=== PATIENT | female | born 1935 | race African-American/Black ===

== ENCOUNTER → 2018-01-07 15:57 | Outpatient (CLI) | payer MEDICARE ==
[~2018-01-07 15:57] MED LIST: ALENDRONATE SOD70 MG PO; GLUCOPHAGE500 MG PO; LASIX20 MG PO; OMEPRAZOLE20 M1 PO; PRINIVIL10 MG PO
[2018-02-05 08:06] VITALS: BMI 27.0
== END | disposition home or self-care (01) ==
LOC: D.US 15:57
DX: R60.0 Localized edema (principal); M79.605 Pain in left leg; M79.604 Pain in right leg

== ENCOUNTER 2018-02-05 07:07 | Outpatient (CLI) | payer MEDICARE ==
[~2018-02-05] VITALS: Ht 162.6 cm; Wt 71.4 kg
--- NOTE | ~2018-02-05 | HEMODYNAMI ---
PATIENT:LESLIE ABBOTT V MEDICAL RECORD: [id number] : 33 LOCATION:D.CAT ADMISSION DATE: 02/05/18 Generatedon:02/05/20189:43 Patient name: LESLIE ABBOTT Patient #: [id number] SSN: : 1935 Date of study: 02/05/2018 Page: Of Hemodynamic Procedure Report Patient Data Patient Demographics Procedure consent was obtained First Name: LESLIE Gender: Female Last Name: SCAR : 1935 [facility] Initial: V Age: 82 year(s) Patient #: [id number] Race: Black Additional ID: [id number] Contact details Address: [address] [place] [address] [address] [place] State: [place] City: [place] Zip code: [address] Past Medical History Allergies: No known allergies Admission Admission Data Admission Date: 02/05/2018 Admission Time: 7:07 Admit Source: Other Lab Results Lab Result Date: 02/05/2018 Lab Result Time: 7:50 Biochemistry Name Units Result Min Max BUN mg/dl 39 --(----)-* 7 18 Creatinine mg/dl 1.6 --(----)-* 0.6 1.3 CBC Name Units Result Min Max Hematocrit % 32.6 *-(----)-- 42 54 Hemoglobin g/dl 9.9 *-(----)-- 13.5 17.5 Procedure Procedure Types Cath Procedure Peripheral Cath Diagnostic Procedure Cath Peripheral Lkjrw-Luuwwyv-Ipj-Off Procedure Description Procedure Date Procedure Date: 02/05/2018 Procedure Start Time: 9:27 Procedure End Time: 9:42 Procedure Staff Name Function John Toro MD Performing Physician Mohinder Hernandez RT Monitor Lowell Yañez RN Nurse Geeta Galo RT Scrub Procedure Data Cath Procedure Fluoroscopy Diagnostic fluoroscopy Total fluoroscopy Time: 0.9 time: 0.9 min min Diagnostic fluoroscopy Total fluoroscopy dose: 126 dose: 126 mGy mGy Contrast Material Contrast Material Type Amount (ml) Isovue 300 74 Entry Location Entry Primary Successful Side Size Upsize Upsize Entry Closure Succes sful Closure Location (Fr) 1 (Fr) 2 (Fr) Remarks Device Remarks Femoral Right 5 Fr Exoseal artery Estimated blood loss: 5 ml Diagnostic catheters Device Type Used For End Catheter Placement DIAGNOSTIC UF 5Fr Procedure catheter ([id number]) Procedure Complications No complications Procedure Medications Medication Administration Route Dosage Oxygen NC 2 l/min Lidocaine 2% added to field 20 Heparin Flush Bag added to field 2 bags (1000units/500ml NS) 0.9% NaCl I.V. 100 ml/hr Ativan 0.5 mg Fentanyl I.V. 25 mcg Fentanyl I.V. 25 mcg Ativan 0.5 mg Hemodynamics Rest HGB: 9.9 (g/dl) Heart Rate: 78 (bpm) Snapshots Pre Cath Intra NCS Post Cath Vital Signs Time Heart Resp SPO2 etCO2 NIBP (mmHg) Rhythm Pain Sedation Rate (ipm) (%) (mmHg) Status Level (bpm) 9:15:19 81 27 100 16.6 166/81(130) NSR 0 (11) 10(A) , No pain 9:19:41 76 21 100 31.8 160/86(128) NSR 0 (11) 10(A) , No pain 9:24:04 75 21 100 24.9 163/82(126) NSR 0 (11) 10(A) , No pain 9:29:11 79 25 100 24.2 153/89(119) NSR 0 (11) 10(A) , No pain 9:33:33 83 23 100 24.2 153/83(122) NSR 0 (11) 10(A) , No pain 9:37:51 87 19 100 18.9 144/90(95) NSR 0 (11) 10(A) , No pain 9:42:09 84 18 99 15.9 144/89(140) NSR 0 (11) 10(A) , No pain Medications Time Medication Route Dose Verified Delivered Reason Notes Effec tiveness by by 9:20:48 Oxygen NC 2 John Buffie used for l/min Cortez Yañez entry level project coordinator 9:20:56 Lidocaine 2% added 20ml John John for local to vial Cortez Toro MD anesthetic field 9:21:02 Heparin Flush added 2 John John used for Bag to bags Cortez Toro MD procedure (1000units/500ml field NS) 9:21:13 0.9% NaCl I.V. 100 John Buffie Per ml/hr Cortez Yañez RN physician 9:24:03 Ativan IV 0.5 John Buffie Per mg Cortez Yañez RN physician 9:24:12 Fentanyl I.V. 25 John Buffie for mcg Cortez Yañez RN sedation 9:30:40 Fentanyl I.V. 25 John Buffie for mcg Cortez Yañez RN sedation 9:32:08 Ativan IV 0.5 John Buffie Per mg Cortez Yañez RN physician Procedure Log Time Note 8:35:44 Informed consent obtained and on chart 8:35:48 Admit Source: Other 8:36:02 Diagnostic Cath status Elective 8:36:03 Time tracking: Regular hours (M-F 7:00 - 5:00) 8:36:06 Plan of Care:Hemodynamics will remain stable., Cardiac rhythm will remain stable., Comfort level will be maintained., Respiratory function will remain adequate., Patient/ family verbilizes understanding of procedure., Procedure tolerated without complication., Recovers from procedure without complications.. 8:36:30 H&P Date Dictated: 01/21/2018 Within 30 days and on chart., H&P Addendum completed by physician on day of procedure. (MUST COMPLETE FOR ALL OUTPATIENTS). 8:39:02 Patient NPO since Midnight. 8:39:07 Patient allergic to No known allergies 8:41:52 Lab Result : BUN 39 mg/dl 8:41:52 Lab Result : Hemoglobin 9.9 g/dl 8:41:52 Lab Result : Creatinine 1.6 mg/dl 8:41:52 Lab Result : Hematocrit 32.6 % 8:41:56 Lab results completed and on chart. 8:45:42 Lowell Yañez RN sent for patient. Start room use. 9:02:55 Patient received from Pre/Post Procedure Room to CCL 2 Alert and oriented. Tansferred to table in Supine position. 9:02:56 Warm blankets applied, and genesis hugger turned on for patient comfort. 9:02:56 Correct patient and procedure confirmed by team. 9:02:57 ECG and BP/O2 sat monitors applied to patient. 9:02:58 Pre-procedure instructions explained to patient. 9:02:58 Pre-op teaching completed and patient verbalized understanding. 9:03:00 Family in waiting room. 9:03:02 Is the patient allergic to Iodine/contrast media? No. 9:14:00 Vital chart was started 9:14:19 Rhythm: sinus rhythm 9:20:48 Oxygen 2 l/min NC was administered by Lowell Yañez RN; used for procedure; 9:20:56 Lidocaine 2% 20ml vial added to field was administered by John Toro MD; for local anesthetic; 9:21:02 Heparin Flush Bag (1000units/500ml NS) 2 bags added to field was administered by John Toro MD; used for procedure; 9:21:13 0.9% NaCl 100 ml/hr I.V. was administered by Lowell Yañez RN; Per physician; 9:21:22 Is patient on blood thinner?No 9:21:23 Patient diabetic? Yes. 9:21:24 If diabetic: On Metformin? Yes 9:21:29 Previous problem with sedation/anesthesia? No ? 9:21:30 Snore? Yes 9:21:31 Sleep apnea? No 9:21:32 Deviated septum? No 9:21:33 Opens mouth fully? Yes 9:21:33 Sticks out tongue? Yes 9:21:35 Airway obstruction? No ? 9:21:40 Dentures? Yes partial in tight 9:21:51 Pre procedure: right dorsailis pedis pulse Doppler 9:21:54 Pre procedure: left dorsailis pedis pulse Doppler 9:22:08 Patient pain scale 0/10 ?. 9:22:42 IV patent on arrival in left antecubital with 0.9% NaCl at [facility]. 9:22:47 Bilateral groins area was prepped with chlora-prep and draped in sterile fashion 9:22:47 Alarms reviewed by R. N. 9:22:48 Sharps counted by scrub and verified by R.N. 9:22:51 ACIST Syringe (36619) opened to sterile field. 9:22:51 Bag Decanter (2002S) opened to sterile field. 9:22:52 Medline Cath Pack ([id number]) opened to sterile field. 9:22:53 DIAGNOSTIC WIRE .035 260cm J wire (097302) opened to sterile field. 9:22:54 ACIST Hand Control (55357) opened to sterile field. 9::54 ACIST Manifold (90769) opened to sterile field. 9::55 Tegaderm 4 x 4 (1626W) opened to sterile field. 9::57 PERCUTANEOUS ENTRY 19GA needle opened to sterile field. 9:23:13 SHEATH Prelude 5Fr 0.035 ([id number]) opened to sterile field. 9:: Baseline sample Acquired. :: Physician arrived : --------ALL STOP TIME OUT------ Final Timeout: patient, procedure, and site verified with staff and physician. All members of the team are in agreement. 9:: Bilateral groins site verified by team. :: Physical assessment completed. ASA score P 3 - A patient with severe systemic disease as per John Toro MD. 9:23:36 Sedation plan: IV Moderate Sedation Medication:Versed, Fentanyl 9:24:03 Ativan 0.5 mg IV was administered by Lowell Yañez RN; Per physician; 9:24:12 Fentanyl 25 mcg I.V. was administered by Lowell Yañez RN; for sedation; 9::33 Zero performed for pressure channel P1 9::37 Zero performed for pressure channel P1 9:: Procedure started. 9:: Full Disclosure recording started 9::29 Local anesthetic to right femoral artery with Lidocaine 2% by John Toro MD.INITIAL ACCESS ONLY 9:27:36 A 5 Fr sheath was inserted into the Right Femoral artery 9:30:33 A DIAGNOSTIC UF 5Fr catheter ([id number]) was advanced over the wire and used for Procedure. 9:30:40 Fentanyl 25 mcg I.V. was administered by Lowell Yañez RN; for sedation; 9:32:08 Ativan 0.5 mg IV was administered by Lowell Yañez RN; Per physician; 9:33:00 Abdominal angiogram w/ runoff was performed. 9:33:13 Left leg runoff performed. 9:34:36 Right leg runoff performed. 9:37:21 Catheter removed. 9:37:50 EXOSEAL 5Fr (EX500) opened to sterile field. 9:37:58 Sheath removed intact; hemostasis achieved with Exoseal to the Right Femoral artery. 9:37:59 Procedure ended.(Physican Out) 9:38:20 Fluoroscopy time 00.90 minutes. 9:38:29 Flurop Dose total: 126 9:38:29 Fluoroscopy dose: 126 mGy 9:38:33 Contrast amount:Isovue 300 74ml. 9:38:34 Sharps counted by scrub and verified by R.N. 9:39:01 Insertion/operative site no bleeding no hematoma. 9:39:04 Post-op/insertion site Right Femoral artery dressed using a 4 x 4 and Tegaderm. 9:39:08 Post right femoral artery:stable, soft, clean and dry 9:39:27 Post Procedure Pulses reassessed and unchanged 9:40:11 Post-procedure physical assessment completed. ASA score P 3 - A patient with severe systemic disease as per John Toro MD. 9:40:14 Post procedure rhythm: unchanged. 9:40:55 Estimated blood loss: 5 ml 9:40:56 Post procedure instruction explained to patient.Patient verbalizes understanding. 9:40:57 Patient needs reinforcement of post procedure teaching. 9:42:26 Procedure and supply charges have been captured, reviewed, submitted and are correct. 9:42:29 Procedure Complication : No complications 9:42:31 Vital chart was stopped 9:42:31 See physician's report for complete and final results. 9:42:32 Report given to Pre/Post Procedure Room. 9:42:35 Patient transfered to Pre/Post Procedure Room with Stretcher. 9:42:40 Procedure ended. 9:42:40 Full Disclosure recording stopped 9:42:44 End room use (Document Last) 9:42:47 pt remained non agitated for procedure. tolerated well with pt baseline level of dementia. Device Usage Item Name Manufacture Quantity Catalog Number Hospital Part Current M inimal Lot# / Charge Number Stock Stock Serial# Code ACIST Syringe Acist 1 [id number] 232563 [id number] 2 0 (71592) [employer] Bag Decanter Microtek 1 513646 20180 618784 5 () Medical Inc. Medline Cath Cardinal 1 [id number] 153144 19277 026985 5 Pack Health ([id number]) DIAGNOSTIC WIRE [facility] [place] 1 873043 159170 414364 749120 3 0 .035 260cm J wire (900336) ACIST Hand Acist 1 01114 548542 488647 879415 5 Control (62384) [employer] ACIST Manifold Acist 1 28360 698662 311291 972921 5 (63157) [employer] Tegaderm 4 x 4 3M 1 1626W 250225 816243 332726 5 (1626W) PERCUTANEOUS Cook Medical 1 [id number] 745977 136877 5 ENTRY 19GA needle SHEATH Prelude Merit 1 [id number] 431497 030388 987673 5 5Fr 0.035 Medical ([id number]) DIAGNOSTIC UF Cardinal 1 [id number] 888824 868292 015281 1 0 5Fr catheter Health ([id number]) EXOSEAL 5Fr Cardinal 1 EX500 806345 089898 609546 1 0 (EX500) Health Signature Audit [place] Stage Time Signature Unsigned Intra-Procedure 02/05/2018 Mohinder Hernandez 9:43:25 AM RT(R) Signatures Monitor : Mohinder Hernandez RT Signature : Date : Time : [facility] [address] [place] [address]
[2018-02-05] MEDS ORDERED: GLUCOPHAGE500 MG PO (07:58)
[2018-02-05] MEDS ORDERED: PRINIVIL10 MG PO (07:58)
[2018-02-05] MEDS ORDERED: LASIX20 MG PO (07:59)
[2018-02-05] MEDS ORDERED: OMEPRAZOLE20 M1 PO (07:59)
[2018-02-05] MEDS ORDERED: ALENDRONATE SOD70 MG PO (08:00)
[2018-02-05 08:06] VITALS: BP 135/72; Ht 162.6 cm; Wt 71.4 kg
[2018-02-05 08:08] LABS: CALCIUM 9.2 mg/dL (8.5-10.1); CARBON DIOXIDE 25.6 mmol/L (21.0-32.0); CREATININE - SERUM 1.6 mg/dL (0.6-1.3); POTASSIUM - SERUM 4.6 mmol/L (3.5-5.1)
[2018-02-05 08:34] LABS: BASOPHILS 0.6 % (0-2); HEMATOCRIT 32.6 % (36.0-48.0); HEMOGLOBIN 9.9 g/dL (12-16); IMMATURE GRANULOCYTES 0.3 % (0-5); LYMPHOCYTES 38.1 % (15-50); MCH 21.8 pg (26.0-34.0); MCHC 30.4 g/dL (31.0-37.0); MCV 71.8 fL (80.0-100.0); MONOCYTES 7.3 % (2-11); NEUTROPHILS 50.7 % (40-80); PLATELET COUNT 224 10x3/uL (130-400); RBC 4.54 10x6/uL (4.00-5.40); RDW 16.1 % (11.5-14.5); WBC 7.1 10x3/uL (4.8-10.8)
== END 2018-02-05 12:57 | disposition home health service (06) ==
LOC: D.CATH 07:07
PROVIDERS: Internal Medicine Cardiovascular Disease
DX: I72.8 Aneurysm of other specified arteries (principal); I70.213 Atherosclerosis of native arteries of extremities with intermittent claudication, bilateral legs; I70.92 Chronic total occlusion of artery of the extremities; Z01.812 Encounter for preprocedural laboratory examination

== ENCOUNTER 2019-07-17 10:17 | Emergency (ER) | payer MEDICARE ==
[~2019-07-17] VITALS: Ht 162.6 cm; Wt 48.2 kg
[2019-07-17 10:21] VITALS: Ht 162.6 cm; Wt 48.2 kg
[2019-07-17 11:44] VITALS: BP 112/63
== END 2019-07-17 11:45 | disposition home or self-care (01) ==
LOC: D.ER 10:17
DX: S70.01XA Contusion of right hip, initial encounter (principal); S69.91XA Unspecified injury of right wrist, hand and finger(s), initial encounter; W19.XXXA Unspecified fall, initial encounter; S70.02XA Contusion of left hip, initial encounter; E11.9 Type 2 diabetes mellitus without complications; I10 Essential (primary) hypertension; G30.9 Alzheimer's disease, unspecified; F02.80 Dementia in other diseases classified elsewhere, unspecified severity, without behavioral disturbance, psychotic disturbance, mood disturbance, and anxiety